=== PATIENT | male | born 1980 | race Caucasian/White ===

== ENCOUNTER 2016-12-26 20:48 | Emergency (ER) | payer OTHER ==
[~2016-12-26] VITALS: Ht 172.7 cm; Wt 71.7 kg
[2016-12-26 20:51] VITALS: BP 136/71
[2016-12-26] MEDS ORDERED: PREDNISONE 20 M20 MG PO (21:46)
[2016-12-26] MEDS ORDERED: TRAMADOL 50 MG50 MG PO (21:46)
== END 2016-12-26 22:47 | disposition home or self-care (01) ==
LOC: ER 20:48
DX: M54.41 Lumbago with sciatica, right side (principal)